=== PATIENT | female | born 1980 | race Caucasian/White ===

== ENCOUNTER 2023-09-29 09:37 | Outpatient (REF) | payer OTHER, SELFPAY ==
[2023-09-30 11:20] LABS: CT PCR NOT DETECTED (Not Detect.); NG PCR NOT DETECTED (Not Detect.)
[2023-09-30 14:05] LABS: BV Int Neg Control Negative (Negative); BV Int Pos Control Positive (Positive)
[2023-10-09 09:18] LABS: HPV mRNA E6/E7 rflx Not Detected (Not Detected)
== END 2023-09-29 09:38 | disposition home or self-care (01) ==
LOC: HO.LNP 09:37
PROVIDERS: PCP Internal Medicine; Visit Provider Advanced Practice Midwife
DX: Z01.419 Encounter for gynecological examination (general) (routine) without abnormal findings (principal); Z11.51 Encounter for screening for human papillomavirus (HPV); Z20.2 Contact with and (suspected) exposure to infections with a predominantly sexual mode of transmission; N95.1 Menopausal and female climacteric states
CPT/HCPCS: 0353U; 87480; 87510; 87624; 87660; 88142

== ENCOUNTER 2023-09-29 09:37 | Outpatient (AMB) | payer OTHER, SELFPAY ==
[2023-09-29 09:48] VITALS: BP 122/76; BMI 34.9
--- NOTE | 2023-09-29 09:48 | MHC.OFFVIS ---
Intake Vital Signs 09/29/23 09:48 Height 5 ft 3 in Weight 197 lb BMI 34.9 BP 122/76 Intake Visit Reasons: Annual Intake Note: Would like hormone testing, has been having some perimenopause Sx. 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: No Information Interpreted: non-clinical & clinical Impregnating Machine Operator: Impregnating Machine Operator Present (Aidyn) Allergies No Known Allergies [No Known Allergies*] Allergy (Verified 09/29/23 09:50) Medication List - Last Reconciled 09/29/23 by Neha Ornelas CNM No Known Home Meds Is last menstrual period known: Yes Last menstrual period: 09/21/23 Post menopausal: No HPI Annual HPI Details Patient is here for an annual exam she has not been seen since 2018 she thinks she may have had an abnormal Pap smear but it was more than 20 years ago in her early 20s in [place] and a 4-0 something. They have been normal since. 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 She is concerned about ervin menopausal symptoms because she is starting to get hot flashes when she least expects them at night or any time and she has been feeling maybe a little depressed and a little anxious and having trouble sleeping but she thinks that is because of the anxiety she says she talked to her primary care provider in her right were wanted to prescribe her Zoloft and she declined it could she does not want medication. She used to have therapist but does not right now and isn't sure she wants to go down that road she works out 5 days a week doing lots of different things including weightlifting and Ellie and she tries to eat really well and take care of herself she is somewhat missed a fight about all the ervin menopausal symptoms and is wondering about getting hormone tests and asks isn't it normal to get different hormone tests she denies abnormal periods irregular periods hirsute is Um or other indications and says a recent thyroid test was normal. She had her mammogram last year. She said she had blood clots after delivery and they needed to take her to the OR and put in a balloon and gave her transfusions. Ever since she delivered her last baby 3-4 years ago she still has a little bit of swelling of her muscles when she does sit up where her diastasis would be. [facility] Female Reproductive History Menstrual Age of Menarche: 13 Duration of menses: 3-5 days Date of last menstrual period: 09/21/23 control method: none Total pregnancies: 3 Full term: 3 Number of Living Children: 3 Date of last pap smear: 11/29/17 (negative) Physical Exam Vital Signs: Last Vital Signs BP 122/76 09/29/23 09:48 BMI result Body Mass Index 34.9 Const General: healthy appearing, comfortable, no acute distress, well developed and alert Nutritional Appearance: average body habitus Orientation/consciousness: patient oriented x3 Limitations: no limitations HEENT Head: Yes normocephalic Neck Neck: Yes normal visual inspection Chest Chest palpation & inspection: normal inspection of the chest Breast/axilla inspection: normal inspection of the breasts and normal inspection of the axillae Breast/axilla palpation: normal palpation of the breasts and normal palpation of the axillae Resp Effort & Inspection: normal respiratory effort GI Inspection: Yes normal to inspection, No Abdominal wall edema and No distended Palpation (GI): Soft to palpation and nontender Other: Normal vaginal exam her cervix is multiparous very deep within her pelvis difficult to reach and visualize but healthy. Cervix mobile nontender uterus anteverted mobile nontender adnexa nontender very good tone with Kegel When patient does sit up there is a slight diastasis palpable. Recommend the patient follow-up with her primary care provider to consider where is the best place to refer for this General: Yes bladder normal to palpation External Female Exam: normal external appearance and normal appearance of the urethra Speculum Exam - Vagina: normal appearance of the vagina, normal palpation and normal vaginal discharge Speculum Exam - Cervix: normal appearance of the cervix, normal palpation and nontender Bimanual exam- vagina & uterus: normal bimanual exam, normal palpation, uterine size normal, bladder normal to palpation, consistency normal, normal palpation, uterine mobility normal, uterine shape normal, No Cervical tenderness present, non-tender and no cervical motion tenderness Bimanual Exam- Adnexa, other: normal adnexae, no masses, normal and No adnexal tenderness Neuro General: patient oriented x3 Assessment & Plan Assessment & Plan (1) Perimenopausal symptoms: Code(s): N95.1 - Menopausal and female climacteric states (2) Well woman exam with routine gynecological exam: Code(s): Z01.419 - Encounter for gynecological examination (general) (routine) without abnormal findings (3) Cervical cancer screening: Code(s): Z12.4 - Encounter for screening for malignant neoplasm of cervix (4) Diastasis of rectus abdominis: Code(s): M62.08 - Separation of muscle (nontraumatic), other site Plan -----Discussed in this visit the following: healthy balanced diet, regular and consistent exercise, getting recommended health screens, doing the best she can for her particular health concerns, kegel exercises, pap smear screening and followup recommendations, mammography screening and SBE, normal changes in cycles in her life stage--- . When the patient schedule a mammogram when she gets the letter or call to reschedule this years Recommend she follow-up with her primary care provider about the diastasis as I am unsure where the best place to refer her for evaluation and treatment of that would be she is already due exercises but maybe there is a better way to do her sit ups to help in some way she may need a surgical referral but I will leave that to her primary care provider Extensive discussion about the normal range of ervin menopausal symptoms and how normal they are she denies any symptoms related to an abnormal hormonal milieu there is no hirsute is Um she has no central lysed hair loss she has no central obesity she has none of the other factors that would be amenable to the normal standards hormone testing discussed that all hormones change constantly every day and they do declines somewhat as 1 gets older and it is normal to experience hot flashes and it is normal to experience more vaginal dryness and not every symptom can be blamed on perimenopause and underlying anxiety depression should be addressed on its own and if it needs to dealt with it might be worth looking at . These things can interfere with sleep more than anything else. Congratulated on all of her excellent self-care efforts. Pap smear was done discussed again that if this Pap smear is normal her next would be in 5 years. Coding Level of Care Code New Pt Prev Care 40-64y(74314) Diagnoses Perimenopausal symptoms N95.1 Well woman exam with routine gynecological exam Z01.419 Cervical cancer screening Z12.4 Diastasis of rectus abdominis M62.08
== END 2023-09-29 10:37 | disposition home or self-care (01) ==
LOC: HO.HWSM 09:38
PROVIDERS: PCP Internal Medicine; Visit Provider Advanced Practice Midwife
DX: Z01.419 Encounter for gynecological examination (general) (routine) without abnormal findings (principal); N95.1 Menopausal and female climacteric states; Z12.4 Encounter for screening for malignant neoplasm of cervix; M62.08 Separation of muscle (nontraumatic), other site
CPT/HCPCS: 99386

== ENCOUNTER 2025-05-02 07:40 | Outpatient (AMB) | payer OTHER, SELFPAY ==
--- OUTSIDE RECORDS SUMMARY | 2024-12-04 12:00 | XMS_ITS ---
Author Organization [facility] Address [address] [address] Care Team Providers Care Air Hammer Stripper Name Role Phone Yancy Grover Primary Care Provider FAIZA Tyler Unavailable [phone] REASON FOR VISIT 4wk Encounters Encounter Location Date Provider Diagnosis [facility] [address] [address] 12/04/2024 FAIZA FLORES Plan Of Treatment No Information Progress Notes * Piyush RIBEIROOB:1980 (44 yo F)Acc No.[id number]:12/04/2024 Progress Note Patient: Lena VAZQUEZ Provider: Pattie Flores DPM :1980 A ge:43 Y S ex:Female Date:12/04/2024 Phone: Address:[address], [place], [place] Pcp:Yancy Grover Subjective: * Chief Complaints: * 1 . 4wk. * Medical History: Objective: * Vitals: Assessment: Plan: * Treatment: * Billing Information: * Visit Code: * Procedure Codes: * Electronic signature of BOB FLORES D.P.M on 05/02/2025 at 07:43 AM EDT Sign off status: Pending * Provider: Pattie Flores DPM Date: 12/04/2024 Generated for Saniya alfonso/Hannah/eTransmitting on: 1 07:43 AM EDT
--- NOTE | 2025-05-02 07:43 | A.OFFVIS_ITS ---
Vital Signs 05/02/25 07:45 Height 5 ft 3 in Weight 197 lb BMI 34.9 Intake Visit Reasons: PLAN NURSE annual exam Intake Note: Last mammo 03/07/25 @[facility] Leather Production Worker: Leather Production Worker Present (Moraima) Allergies No Known Allergies (No Known Allergies*) Allergy (Verified 05/02/25 07:44) Is last menstrual period known: Yes Last menstrual period: 04/07/25 [facility] Comments Details: Patient is a premenopausal woman presenting for annual examination. Rd Manager concerns: none. Regular monthly menses. Currently is sexually active, partner had a vasectomy. She denies vaginal itching or irritation. STI screening offered; she declines. She tries to eat healthy and stays active with exercise. Denies family history of breast, ovarian or colon cancer. Last pap smear 2023, negative. Mammogram: 2024 at [facility] no copies available. 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 [employer] Female Reproductive History Menstrual Age of Menarche: 13 Duration of menses: 3-5 days Date of last menstrual period: 04/07/25 control method: none and other (vasectomy) Total pregnancies: 3 Full term: 3 Number of Living Children: 3 Date of last pap smear: 09/29/23 (neg pap and hpv) Date of Mammogram: 03/07/25 (normal per pt @[facility]) Review of Systems Const All systems reviewed & are unremarkable except as noted in HPI and below Reports as per HPI Eyes Reports no additional complaints ENT Reports no additional complaints Card Reports no additional complaints Resp Reports no additional complaints GI Reports as per HPI and Reports no additional complaints Reports as per HPI Musc Reports no additional complaints Skin/Breast Reports as per HPI Neuro Reports no additional complaints Psych Reports no additional complaints Endo Reports no additional complaints Pollo/Lymph Reports no additional complaints Aller/Immun Reports no additional complaints Physical Exam Vital Signs: BMI result Body Mass Index 34.9 Const General: cooperative, healthy appearing, no acute distress, well developed and alert Orientation/consciousness: patient oriented x3 HEENT Head: Yes normal to inspection Eyes General: appearance normal, both eyes and all related structures Neck Neck: Yes normal visual inspection Thyroid: Thyroid normal Chest Chest palpation & inspection: normal inspection of the chest and other (no puckering, dimpling, peau de orange, retraction, discharge, masses) Breast/axilla inspection: normal inspection of the breasts Breast/axilla palpation: normal palpation of the breasts Resp Effort & Inspection: normal respiratory effort GI Inspection: Yes normal to inspection Palpation (GI): Soft to palpation Rectal Exam - Female: deferred General: Yes bladder normal to palpation External Female Exam: normal external appearance and normal appearance of the urethra Speculum Exam - Vagina: normal appearance of the vagina, normal palpation and normal vaginal discharge Speculum Exam - Cervix: normal appearance of the cervix and normal palpation Bimanual exam- vagina & uterus: normal bimanual exam, normal palpation, uterine size normal, bladder normal to palpation, normal palpation and non-tender Bimanual Exam- Adnexa, other: no masses Skin General skin exam: no rashes or lesions noted Rashes: no rashes Neuro General: patient oriented x3 Cognition (Neuro): normal cognition Extrem General: Yes normal to inspection Psych Attitude: cooperative Thought process: Normal thought process present Assessment & Plan Assessment & Plan (1) Well woman exam with routine gynecological exam: Code(s): Z01.419 - Encounter for gynecological examination (general) (routine) without abnormal findings Category: Medical Plan Discussed: Current recommendations for pap smears per ASCCP guidelines. Breast awareness and periodic breast exams. Mammogram yearly. Maintain a healthy lifestyle including a well balanced diet and routine exercise. Monitor menstrual cycles, report any unscheduled bleeding, bleeding episodes <24 days apart or heavy/prolonged menstrual bleeding. Call the office for a follow up for any concerns. Perimenopausal transition changes. Information handouts and website resource provided. Patient verbalizes understanding and agrees to the plan of care. She was given opportunity to ask questions and all questions were answered to the best of my ability. RTO in one year for annual body trimmer upholsterer examination. This note is constructed using voice recognition software. While every effort has been made to ensure accuracy, doughmaker errors may have been included. Coding Level of Care Code Est Pt Prev Care 40-64y(01939) Diagnoses Well woman exam with routine gynecological exam Z01.419
--- OUTSIDE RECORDS SUMMARY | 2025-05-02 07:43 | XMS_ITS | Patient Health Record ---
Author Organization [facility] Address [address] [facility] [address] [place] [address] Care Team Providers Care Supervisor Agricultural Education Name Role Phone Yancy Grover Primary Care Provider FAIZA Tyler Unavailable [phone] Allergies No Known Allergies Reason For Referral Reason Please send referral to [facility] on [facility] in [place], [place] fax: . Left foot plantar fasciitis, please evaluate and treat with gait training therapy, she has a tight left lower extremity with lower back pain of the left side. Thank you. Diagnosis 1 Plantar fasciitis, l eft (M72.2) Referral Organization [facility] Referring Provider First Name FAIZA Referring Provider Last Name GARRETT Referring Provider Speciality Podiatry Referred Provider Specialty Physical The rapist General Notes Fabiola Woodard 10/2024 08:54:51 AM > Faxed referral, progress note 02/16/2025, and medical summary to [facility] [address] [place] [address] and phone number [phone]. Confirmation received fax scanned into chart. Clinical Notes Fabiola Woodard 12/2024 01:01:03 PM > [facility] to verify if appointment has been scheduled per office referral received but has not been scheduled yet., Fabiola Woodard 02/23/2025 09:05:55 AM > Called [facility] to verify if appointment has been scheduled. Appointment 02/28/2025 at 3:00pm. Referral Priority Routine Medications Medication SIG (Take, Route, Fr equency, Duration) Notes Start Date End Date Status Advil 200 MG 1 tablet with food o r milk as needed Orally Three times a day PRN foot pain Active Problems Problem Type SNOMED Code ICD Code Onset Dates Problem Status W/U Status Risk Notes Problem Lumbar radiculopathy (285559577) Lumbar radiculopathy (M54.16) Active confirmed Problem Plantar fascial fibromatosis (63369536) Plantar fasciitis, left (M72.2) Active confirmed Vital Signs Heart Rate 83 /min 10/30/2024 Temperature 97.8 degrees Fahrenheit 10/30/2024 Respiratory Rate 16 /min 10/30/2024 Height 5ft 3in in 02/16/2025 Weight 195.3 lbs 02/16/2025 BMI 34.59 kg/m2 02/16/2025 Procedures Procedure Date Ordered Date Performed Result Body Sit e INJ TENDON SHEATH/LIGAMENT/FASCIA 10/30/2024 N/ A INJ TENDON SHEATH/LIGAMENT/FASCIA 02/16/2025 N/ A Encounters Encounter Location Date Provider Diagnosis [facility] [address] [address] 10/30/2024 FAIZA TUCKER Plantar fasciitis, left M72.2 and Pain in left foot M79.672 [facility] [address] [address] 02/16/2025 FAIZA TUCKER Plantar fasciitis, left M72.2 ; Pain in left foot M79.672 and Lumbar radiculopathy M54.16 [facility] [address] [address] 03/21/2025 FAIZA TUCKER Assessments Encounter Date Diagnosis (ICD Code) Assessment Notes Treatment Notes Treatment Clinical Notes Section Notes 10/30/2024 Pain in left foot (ICD-10 - M79.672) 10/30/2024 Plantar fasciitis, left (ICD-10 - M72.2) This is an outpatient visit for evaluation and management of a new patient, which required appropriate review of pertinent medical history, review of any previous imaging, review of all previous records, and examination and decision-making. Time was 50 minutes spent in review of all these facets including face to face discussion with the patient regarding my findings and in discussion of a current and future treatment plan. Consent was reviewed and signed by the patient for a steroid injection into the left plantar fascia. Pt agreed. 3cc total steroid injection was given into the left foot. Pt tolerated well. Post-Injection instructions were given to the patient. Pt instructed to ice/elevate the foot tonight. X-rays reviewed in [facility] and normal findings discussed with the patient. Discussed the pathology of plantar fasciitis, what that means and how it affects the patient's ADL. Reviewed stretching and icing exercises with the patient, handout dispensed, and patient instructed to perform twice daily. I also encouraged the patient to continue using the night splint. Recommended starting a course of NSAIDs with the patient. Discussed proper shoe gear with the patient and recommended over the counter inserts, handout dispensed for recommendations. I also encouraged the patient to avoid barefoot walking. I will have the patient return in 4 weeks for a re-evaluation. The patient is in agreement with this plan. 02/16/2025 Pain in left foot (ICD-10 - M79.672) 02/16/2025 Plantar fasciitis, left (ICD-10 - M72.2) This is an outpatient visit for evaluation and management of an established patient, which required appropriate review of pertinent medical history, review of any previous imaging, review of all previous records, and examination and decision-making. Time was 30 minutes spent in review of all these facets including face to face discussion with the patient regarding my findings and in discussion of a current and future treatment plan. Consent was reviewed and signed by the patient for a steroid injection into the left plantar fascia. Pt agreed. 3cc total steroid injection was given into the left foot. Pt tolerated well. Post-Injection instructions were given to the patient. Pt instructed to ice/elevate the foot tonight. Discussed the pathology of plantar fasciitis, what that means and how it affects the patient's ADL. Reviewed stretching and icing exercises with the patient, handout dispensed, and patient instructed to perform twice daily. Discussed proper shoe gear with the patient and recommended over the counter inserts, handout dispensed for recommendations. I also encouraged the patient to avoid barefoot walking. We discussed the stretching and the support are most important for shelter relief. I recommended a course of gait training therapy for the patient due to her tight left side from her lower back to her foot. Referral placed. The patient is in agreement with this plan. 02/16/2025 Lumbar radiculopathy (ICD-10 - M54.16) Plan Of Treatment Pending Test Test Name Order Date X ray : Foot, left 3v 10/30/2024 INJ TENDON SHEATH/LIGAMENT/FASCIA 2024 INJ TENDON SHEATH/LIGAMENT/FASCIA 2024 Insurance Providers Payer Name Payer Address Payer Phone Subscriber Number Group Number Insured Name Patient Relationship to Insured Coverage Start Date Coverage End Date [place] [address] [place] [phone] [id number] Lena Ribeiro Self - patient is the insured Medications Administered Medication Instructions Date of Administration Dosage Notes dexAMETHasone Sod Phosphate PF 10/30/2024 0.5 m L dexAMETHasone Sod Phosphate PF 02/16/2025 0.5 m L Kenalog 10/30/2024 0.5 mL Kenalog 02/16/2025 0.5 mL Medical (General) History Medical History History ICD Code anxiety hyperlipidemia, unspecified hypothyroidism severe obesity (BMI 35.0-39.9) with nilo rbidity left foot pain + COVID 2020 COVID vaccinated X 4 (Pfizer) Hospitalization History Reason Date(Month/Year) vaginal delivery (boy) 2019 vaginal delivery (girl) 2017 vaginal delivery (girl) 1999
--- OUTSIDE RECORDS SUMMARY | 2025-05-02 07:43 | XMS_ITS | Clinical Summary ---
Author Organization [facility] Address [address] [place] [address] Care Team Providers Care Ui Lead Developer Name Role Phone Yancy Grover MD Primary Care Provider [phone] Surgical History Surgery Date Site/Laterality Comments OTHER SURGICAL HISTORY PROCEDURE: DENIES PREVIOUS SURGERY Family History Medical History Relation Name Comments Other cancer Father stomach Breast cancer Neg Hx Colon cancer Neg Hx Heart attack Neg Hx Ovarian cancer Neg Hx Relation Name Status Comments Father Social History Tobacco Use Types Packs/Day Years Used Date Smoking Tobacco: Former Cigarettes Smokeless Tobacco: Never Alcohol Use Standard Drinks/Week Comments Yes 0 (1 standard drink = 0.6 oz pur e alcohol) Comments Unknown Sex and Gender Information Value Date Recorded Sex Assigned at Not on file Legal Sex Female 1:16 PM EST Gender Identity Not on file Sexual Orientation Not on file Obstetrics History Plan of Treatment Health Maintenance Due Date Last Done Comments Breast Cancer Screening 1980 Hepatitis B Vaccines (1 of 3 - 19+ 3-dose series) 12/09/1999 Cervical Cancer Screening: P ap Smear 2001 HPV Vaccines (1 - 3-dose SCD M series) 12/09/2007 DTaP,Tdap,and Td Vaccines (2 - Td or Tdap) 01/31/2023 01/31/2013 Cholesterol Screening (Lipid Panel) 02/15/2024 HIV Screening 02/15/2024 Hepatitis C Screening 02/15/2024 Social Influencers of Health Screening 02/15/2024 Depression Screening 07/19/2024 COVID-19 Vaccine (1 - 2023-2 5 season) 2025 Influenza Vaccine (#1) 2025 RSV Immunization Adult Patie nts (1 - 1-dose 75+ series) 12/09/2055 HIB Vaccines Aged Out No longer eligi ble based on patient's age to complete this topic Hepatitis A Vaccines Aged Out No long er eligible based on patient's age to complete this topic IPV Vaccines Aged Out No longer eligi ble based on patient's age to complete this topic MMR Vaccines Aged Out No longer eligi ble based on patient's age to complete this topic Meningococcal ACWY Vaccine Aged Out N o longer eligible based on patient's age to complete this topic Meningococcal B Vaccine Aged Out No l onger eligible based on patient's age to complete this topic Pneumococcal Vaccine: Pediat rics (0 to 5 Years) and At-Risk Patients (6 to 49 Years) Aged Out No longer eligi ble based on patient's age to complete this topic RSV Immunization Patients Un marybeth 20 months Aged Out No longer eligible b ased on patient's age to complete this topic Varicella Vaccines Aged Out No longer eligible based on patient's age to complete this topic Care Teams Ui Lead Developer Relationship Specialty Start Date End Date Yancy Grover MD PCP - General 06/21/23
[2025-05-02 07:45] VITALS: BMI 34.9
== END 2025-05-02 08:39 | disposition home or self-care (01) ==
LOC: HO.HWS 07:40
PROVIDERS: PCP Internal Medicine; Visit Provider Advanced Practice Midwife
DX: Z01.419 Encounter for gynecological examination (general) (routine) without abnormal findings (principal)
CPT/HCPCS: 99396; 99459